=== PATIENT | female | born 1980 | race Caucasian/White ===

== ENCOUNTER → 2021-08-24 15:48 | Outpatient (CLI) | payer BC, SELFPAY ==
--- NOTE | ~2021-08-24 | XR_ITS ---
XR abdomen/kub 1V DATE: 08/24/2021 16:14 INDICATION: Pelvic and perineal pain TECHNIQUE: Supine AP views COMPARISON: None FINDINGS: An IUD overlies the mid pelvic area. There is no evidence of bowel obstruction. The psoas shadows are intact. No visceromegaly or signific ant abnormal calcification is noted. Included skeletal structures are unremarkable. IMPRESSION: Nonspecific abdomen IUD Reviewed, dictated and finalized at [facility]. Reviewed, dictated and finalized at location B. IMPRESSION: Nonspecific abdomen IUD
== END ==
PROVIDERS: PCP Family Medicine; Visit Provider Physician Assistant
DX: R10.2 Pelvic and perineal pain (principal); Z97.5 Presence of (intrauterine) contraceptive device
CPT/HCPCS: 74018

== ENCOUNTER → 2023-06-09 14:45 | Outpatient (CLI) | payer BC, SELFPAY ==
--- NOTE | ~2023-06-09 | MM_ITS ---
EXAMINATION: MM screening [facility] BI w cari HISTORY: Baseline screening mammogram TECHNIQUE: Craniocaudal and mediolateral oblique 3-D tomosynthesis images were obtained and synthetic 2-D images were generated. CAD analysis was submitted and interpreted. COMPARISON: None, baseline BREAST PARENCHYMAL COMPOSITION: The breasts are extremely dense, which lowers the sensitivity of mamm ography. FINDINGS: RIGHT BREAST: There is an obscured mass in the upper outer quadrant of the breast. In addition, there is an asymmetry in the far posterior third of the slightly upper breast on the mediolateral oblique view. LEFT BREAST: There is a possible obscured mass in the anterior third of the slightly lower breast. IMPRESSION: 1. Bilateral breast findings as above. 2. Additional mammographic views and possible breast ultrasound are recommended to evaluate the above breast findings and establish a baseline given that this is the first mammographic examination. BI-RADS Category 0: Incomplete: Needs additional imaging evaluation. Reviewed, dictated and finalized at location A.
== END ==
PROVIDERS: PCP Obstetrics & Gynecology; Visit Provider Obstetrics & Gynecology
DX: Z12.31 Encounter for screening mammogram for malignant neoplasm of breast (principal); R92.8 Other abnormal and inconclusive findings on diagnostic imaging of breast
CPT/HCPCS: 77063; 77067

== ENCOUNTER → 2023-07-05 08:17 | Outpatient (CLI) | payer BC, SELFPAY ==
--- NOTE | ~2023-07-05 | MMUS_ITS ---
EXAMINATION: MM diagnostic percy BI w cari, US breast BI complete HISTORY: Bilateral mammographic abnormalities including possible bilateral breast masses noted on 05/15 screening mammogram TECHNIQUE: Additional 3-D tomosynthesis images of both breasts were performed and synthetic 2-D image s were generated. CAD analysis was submitted and interpreted. High resolution complete bilateral [facility] ultrasound examination including all 4 quadrants and subareolar areas was performed. COMPARISON: 06/09/2023 bilateral screening mammogram FINDINGS: MAMMOGRAPHIC FINDINGS: A 1 cm circumscribed mass is noted in the posterior upper outer right breast. Extremely dense fibroglandular stroma throughout both breasts may obscure additional masses. For this reason, bilateral complete breast ultrasound examination was performed. Occasional benign microcalcifications. No architectural distortion, skin thickening or retraction is evident. ULTRASOUND: Right breast: There are innumerable simple and septated cysts of the right breast, measuring up to 1.8 cm. There is a complex mass at 10:00 9 cm from the nipple which has prominent septated cystic component a nd some solid components with prominent adjacent vascularity on color flow imaging. There is some irr egular soft tissue thickening of some of the septa. The margins are not completely circumscribed. The re is through transmission and posterior enhancement associated with the cystic component but not the solid component of the lesion. Ultrasound-guided biopsy of the solid area is recommended. Left breast: There are innumerable septated and simple cysts scattered in the left breast, measuring up to 2.5 cm approximate maximal dimension. No suspicious mass or shadowing of the left breast is detected. IMPRESSION: 1. Suspicious complex mass of right breast at 10:00 9 cm from nipple 2. Ultrasound-guided biopsy of right breast 10:00 lesion is recommended BI-RADS category 4, suspicious findings. Dr. Cruz telephoned the report and ultrasound-guided biopsy recommendation of right 10:00 lesion on at 1135 hours to Jenelle Re Etcher Reviewed, dictated and finalized at location A. IMPRESSION: 1. Suspicious complex mass of right breast at 10:00 9 cm from nipple 2. Ultrasound-guided biopsy of right breast 10:00 lesion is recommended BI-RADS category 4, suspicious findings. Dr. Cruz telephoned the report and ultrasound-guided biopsy recommendation of r ight 10:00 lesion on 07/05/2023 at 1135 hours to Brandi Almanzar
== END ==
PROVIDERS: PCP Obstetrics & Gynecology; Visit Provider Obstetrics & Gynecology
DX: R92.8 Other abnormal and inconclusive findings on diagnostic imaging of breast (principal)
CPT/HCPCS: 76641; 77062; 77066; G0279

== ENCOUNTER 2023-07-20 10:13 | Outpatient (CLI) | payer BC, SELFPAY ==
--- NOTE | ~2023-07-20 | US_ITS ---
US breast RT limited DATE: 07/20/2023 11:30 INDICATION: The patient presented for ultrasound-guided biopsy of a reported complex mass of the righ t breast at 10:00 9 cm from the nipple TECHNIQUE: Real-time and color flow imaging targeted at 10:00 COMPARISON: 07/05/2023 diagnostic mammogram and complete right breast ultrasound 06/09/2023 bilateral screening mammogram FINDINGS: The area of concern at 10:00 9 cm of the nipple is a simple cyst, completely sonolucent, wi th circumscribed margins, through transmission and posterior enhancement and no internal vascularity. There is no solid component or abnormal thickening of the wall of the cyst. The sonographic features reported out to the patient. Biopsy is not necessary. IMPRESSION: BI-RADS Category 2: Benign; multiple simple cysts are observed, including 19 x 9 x 17 mm benign simple cyst at 10:00 9 cm from the nipple Recommendation: Routine annual mammographic screening can with supplemental ultrasound imaging as nee ded due to the very dense fibroglandular stroma Reviewed, dictated and finalized at Location A. Reviewed, dictated and finalized at location A. IMPRESSION: BI-RADS Category 2: Benign; multiple simple cysts are observed, inc luding 19 x 9 x 17 mm benign simple cyst at 10:00 9 cm from the nipple Recommendation: Routine annual mammographic screening can with supplemental ult rasound imaging as needed due to the very dense fibroglandular stroma
== END 2023-07-20 10:14 | disposition home or self-care (01) ==
PROVIDERS: PCP Family Medicine; Visit Provider Physician Assistant Surgical
DX: N60.11 Diffuse cystic mastopathy of right breast (principal)
CPT/HCPCS: 76642

== ENCOUNTER → 2024-01-02 07:51 | Outpatient (CLI) | payer BC, SELFPAY ==
--- NOTE | ~2024-01-02 | US_ITS ---
Please refer to diagnostic right mammogram report dated 01/02/2024 for details. Reviewed, dictated and finalized at location A. 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
--- NOTE | ~2024-01-02 | MM_ITS ---
EXAMINATION: MM diagnostic percy RT w cari HISTORY: Follow-up right breast mass TECHNIQUE: Additional 3-D tomosynthesis images of the right breast were performed and synthetic 2-D i mages were generated. CAD analysis was submitted and interpreted. High resolution complete right [facility] ultrasound was performed. COMPARISON: 06/09/2023 BREAST PARENCHYMAL COMPOSITION: Dense: The breasts are extremely dense, which lowers the sensitivity of mammography. FINDINGS: MAMMOGRAPHIC FINDINGS: There is a persistent partially obscured mass in the upper outer quadrant of the right breast. There are no suspicious calcifications or architectural distortion. ULTRASOUND: Complete US of all 4 quadrants of the right breast and retroareolar region was reviewed. There are mu ltiple cysts of the right breast scattered throughout, largest measuring 1.9 cm at 5:00. No suspiciou s solid masses to suggest malignancy. IMPRESSION: 1. No evidence for malignancy in the right breast. Benign findings. 2. Routine yearly screening mammogram and regular clinical breast examination are recommended. BI-RADS Category 2: Benign finding(s). Reviewed, dictated and finalized at location A. 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 No evidence for malignancy in the right breast. Benign findings. 2. Routine yearly screening mammogram and regular clinical breast examination a re recommended. BI-RADS Category 2: Benign finding(s).
== END ==
PROVIDERS: PCP Physician Assistant Surgical; Visit Provider Physician Assistant Surgical
DX: N63.10 Unspecified lump in the right breast, unspecified quadrant (principal); R92.2 Inconclusive mammogram
CPT/HCPCS: 76641; 77061; 77065; G0279

== ENCOUNTER → 2024-01-12 11:22 | Outpatient (CLI) | payer BC, SELFPAY ==
--- NOTE | ~2024-01-12 | US_ITS ---
Pelvic ultrasound. Clinical History: Menorrhagia Technique: Realtime transabdominal and transvaginal scanning of the pelvis was performed. Color flow Doppler and Doppler spectral analysis were performed. Findings: The uterus is retroverted.. The endometrial stripe has a thickness of [address] No focal mass is identified. The right ovary measures 3.4 x 1.5 x 2.5 cm. No significant right ovarian or adnexal mass is seen. The left ovary measures 3.8 x 3.5 x 3.8 cm. Simple left ovarian cyst measures 2.6 cm. There is no evidence of free fluid in the cul de sac. Impression: IUD in place. 2.6 cm left ovarian cyst. Reviewed, dictated and finalized at [facility]. T DESK Impression: IUD in place. 2.6 cm left ovarian cyst.
== END ==
PROVIDERS: PCP Obstetrics & Gynecology; Visit Provider Obstetrics & Gynecology
DX: N92.1 Excessive and frequent menstruation with irregular cycle (principal); N83.202 Unspecified ovarian cyst, left side; Z97.5 Presence of (intrauterine) contraceptive device
CPT/HCPCS: 76830; 76856

== ENCOUNTER 2025-08-06 12:03 | Outpatient (CLI) | payer BC, SELFPAY ==
--- OUTSIDE RECORDS SUMMARY | 2025-08-06 12:29 | XMS_ITS | Clinical Summary ---
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 Role Phone Unavailable Primary Care Provider Unavailabl e Social History Tobacco Use Types Packs/Day Years Used Date Smoking Tobacco: Never Assessed Comments Unknown Sex and Gender Information Value Date Recorded Sex Assigned at Not on file Legal Sex Female 7:24 PM CDT Gender Identity Not on file Sexual Orientation Not on file Plan of Treatment Health Maintenance Due Date Last Done Comments Cervical Cancer Screening Pa p Smear (Age 30 to 64) Every 3 Years 1982 Annual Physical 1985 Hepatitis C 2000 DTaP, Tdap and Td Vaccines ( 1 - Tdap) 2001 Hepatitis B Vaccines (1 of 3 - 19+ 3-dose series) 2001 HPV Vaccines (1 - 3-dose SCD M series) 2009 Cervical Cancer Screening Pa p with HPV Testing (Age 30 to 64) Every 5 Years 2012 Cervical Cancer Screening with HPV 2012 Mammogram Screening 2022 COVID-19 Vaccine ( - 2023-2 5 season) 2025 Meningococcal B Vaccine Aged Out No l onger eligible based on patient's age to complete this topic Meningococcal Vaccine Aged Out No katrin cari eligible based on patient's age to complete this topic Pneumococcal Vaccine: Pediat rics (0 to 5 Years) and At-Risk Patients (6 to 49 Years) Aged Out No longer eligible b ased on patient's age to complete this topic RSV Immunizations Under 20 Months Aged Out No longer eligible based on patient's age to complete this topic
--- OUTSIDE RECORDS SUMMARY | 2025-08-06 12:29 | XMS_ITS | Clinical Summary ---
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 Gender Identity Not on file Sexual Orientation Not on file Plan of Treatment Health Maintenance Due Date Last Done Comments Hepatitis C Virus (HCV) Screening 1982 Hepatitis B Immunization (1 of 3 - 19+ 3-dose series) 2001 Pap Smear 2003 Human Papillomavirus (HPV) Immunization (1 - 3-dose SCDM series) 2009 Cervical Cancer Screening (CCS) 2012 HPV/Cotest 2012 SARS-COV-2 Immunization ( season) 2024 Influenza Immunization (#1) 2025 10/05/2014 Respiratory Syncytial Virus (RSV) Immunization (Adult) (1 - 1-dose 75+ series) 2057 DTaP/Tdap/Td Immunization Discontinued 02/09/2015 TdaP Immunization Completed 02/09/2015 Meningococcal Immunization (ACWY) Aged Out No longer eligible based on patient's age to complete this topic Pneumococcal Immunization Combined Aged Out No longer eligible based on patient's age to complete this topic Rotavirus Immunization Aged Out No lo nger eligible based on patient's age to complete this topic
--- OUTSIDE RECORDS SUMMARY | 2025-08-06 12:29 | XMS_ITS | Clinical Summary ---
Author Organization [facility] Address [address] [facility] [address] [place] [address] Care Team Providers Care Erection Shop Supervisor Name Role Phone Artur Umanzor MD Primary Care Provider [phone] Source Comments [facility],non-owned Affiliates and Associated Physician Practices is amultiple site organization consisting of ambulatory clinics and hospital sitesin [place], [place], [place] and [place]. This disclosure is being madepursuant to the Care Everywhere program and may not contain all information available regarding this patient. Last updated 18.[facility] Allergies No known active allergies Medications * Be aware that medications may not be up to date on this document. Alwaysverify current medications with the patient. No known medications Active Problems No known active problems Family History Medical History Relation Name Comments CAD (Coronary Artery Disease) Maternal Grandfather Diabetes Maternal Grandfather CAD (Coronary Artery Disease) Maternal Grandmother Diabetes Maternal Grandmother Cancer - Breast Paternal Aunt CAD (Coronary Artery Disease) Paternal Grandfather CAD (Coronary Artery Disease) Paternal Grandmother Relation Name Status Comments Maternal Grandfather Maternal Grandmother Paternal Aunt Paternal Grandfather Paternal Grandmother Social History Tobacco Use Types Packs/Day Years Used Date Smoking Tobacco: Never Smokeless Tobacco: Never Alcohol Use Standard Drinks/Week Comments Yes 0 (1 standard drink = 0.6 oz pur e alcohol) Social Comments No Sex and Gender Information Value Date Recorded Sex Assigned at Not on file 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 Gender Identity Not on file Sexual Orientation Not on file Last Filed Vital Signs Vital Sign Reading Time Taken Comments Blood Pressure 110/62 05/10/2021 12:24 PM CDT Pulse 72 05/10/2021 12:24 PM CDT Temperature 36.4 C (97.6 F) 05/10/2021 12:24 PM CDT Respiratory Rate 16 05/10/2021 12:24 PM CDT Oxygen Saturation 98% 05/10/2021 12:24 PM CDT Inhaled Oxygen Concentration - - Weight 64.4 kg (142 lb) 05/10/2021 12:24 PM CDT Height 170.2 cm (5' 7) 05/10/2021 12:24 PM CDT Body Mass Index 22.24 05/10/2021 12:24 PM CDT Plan of Treatment Health Maintenance Due Date Last Done Comments LIPID TESTING 1982 MAMMOGRAM 1982 HIV SCREENING 1997 HEPATITIS C SCREENING 08/16/2000 DTAP/TDAP/TD VACCINES (1 - Tdap) 2001 HEPATITIS B VACCINE (1 of 3 - 19+ 3-dose series) 2001 PAP SMEAR 2003 HPV VACCINE (1 - 3-dose SCDM series) 2009 DEPRESSION SCREENING 11/14/2024 COVID-19 VACCINE (3 - 2024-2 6 season) 2025 01/17/2021, 12/27/2020 INFLUENZA VACCINE (#1) 2025 10/05/2014 ZOSTER VACCINE (1 of 2) 2032 HIB VACCINE Aged Out No longer eligi ble based on patient's age to complete this topic MENINGOCOCCAL (Group B) VACCINE SHARED DECISION-MAKING Aged Out No longer eligible based on patient's age to complete this topic MENINGOCOCCAL GROUPS A/C/Y/W VACCINE Aged Out No longer eligible b ased on patient's age to complete this topic PNEUMOCOCCAL VACCINE Aged Out No long er eligible based on patient's age to complete this topic Insurance [facility] Advance Directives * FULL RESUSCITATION (Latest Code Status on File) Date Activated Date Inactivated Comments 02/02/2012 2:47 PM 02/04/2012 2:42 AM * FULL RESUSCITATION Date Activated Date Inactivated Comments 02/02/2012 8:58 AM 02/02/2012 2:47 PM Care Teams Erection Shop Supervisor Relationship Specialty Start Date End Date Artur Umanzor MD [address] [place] [id number] PCP - General Family Medicine 05/10/21
[2025-08-06 13:15] LABS: Thyroid Stimulating Hormone Reflex 0.979 uIU/mL (0.465-4.68)
[2025-08-07 07:09] LABS: FSH 2.7 mIU/mL (.)
[2025-08-07 10:09] LABS: LH 3.4 mIU/mL (.)
== END 2025-08-06 12:04 | disposition home or self-care (01) ==
LOC: ANHLAB 12:05
PROVIDERS: PCP Family Medicine; Visit Provider Obstetrics & Gynecology
DX: N95.1 Menopausal and female climacteric states (principal)
CPT/HCPCS: 36415; 83001; 83002; 84144; 84443